=== PATIENT | male | born 1970 | race Hispanic/Latino ===

== ENCOUNTER 2018-01-11 09:33 | Emergency (ER) | payer OTHER ==
--- NOTE | 2018-01-11 10:12 | XRay Report ---
CHEST 2 VIEWS INDICATION: Shortness of breath. COMPARISON: None similar at this institution. FINDINGS: PA and lateral chest radiographs demonstrate normal cardiomediastinal silhouette. Clear lungs. Intact bones. CONCLUSION: No acute disease in the chest. Subtle hiatal hernia not excluded. Please correlate. Thank you for the opportunity to participate in this patient's care.
[2018-01-11 10:21] LABS: Basophils % (Auto) 0.3 % (0.0-1.8); Eosinophils % (Auto) 0.3 % (0.0-4.3); Hematocrit 46.4 % (35.5-45.6); Hemoglobin 15.8 gm/dl (11.8-15.2); Lymphocytes # (Auto) 2.1 K/mm3 (1.2-5.4); Lymphocytes % (Auto) 23.1 % (13.4-35.0); Mean Corpuscular HGB Conc 34 % (32-34); Mean Corpuscular Hemoglobin 35 pg (28-32); Mean Corpuscular Volume 102 fl (84-94); Monocytes # (Auto) 0.5 K/mm3 (0.0-0.8); Monocytes % (Auto) 5.7 % (0.0-7.3); Platelet Count 214 K/mm3 (140-440); Red Blood Count 4.54 M/mm3 (3.65-5.03); Red Cell Distribution Width 12.8 % (13.2-15.2)
[2018-01-11 10:34] LABS: BUN/Creatinine Ratio 16; Blood Urea Nitrogen 13 mg/dL (9-20); Calcium 9.2 mg/dL (8.4-10.2); Hemolysis Index 7
[2018-01-11] MEDS ORDERED: ATIVAN IM STA (10:52)
--- NOTE | 2018-01-11 10:59 | Emergency Department Report ---
ED General Adult HPI - General Chief complaint: Anxiety Stated complaint: CHEST PAIN Time Seen by Provider: 01/11/18 10:38 Source: patient, RN notes reviewed Mode of arrival: Ambulatory Limitations: No Limitations - History of Present Illness Initial comments: This is a 47-year-old male who was previously unknown to this provider. Memory care doctor is Dr. Collins with [facility] Past medical history includes anxiety, asthma, glaucoma, kidney stones The patient presents to the ER with a complaint of painless shortness of breath , sensation of heart racing, generalized weakness, bilateral upper extremity/ hand tingling and numbness, and a sensation of almost passing out. Contrary to what is documented in triage nurse note, the patient specifically denies chest pain. His symptoms started at 8:00 this morning, they are intermittent, did not radiate anywhere, patient reports no exacerbating or relieving factors. He reports that he felt like his asthma was acting up so he took an albuterol inhaler treatment, which did not change his symptoms. 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 There is no leg pain, there is no leg swelling, no recent trips, no recent hospital admissions, patient reports no personal or family history of DVT and pulmonary embolus risk factors. There is furthermore no family history of coronary artery disease that he is aware of. -: Sudden Consistency: intermittent Improves with: none Worsens with: none Associated Symptoms: malaise, shortness of breath, syncope, weakness. denies: confusion, cough, diaphoresis, fever/chills, headaches, loss of appetite, nausea /vomiting, rash, seizure - Related Data Allergies Allergy/AdvReac Type Severity Reaction Status Date / Time No Known Allergies Allergy Unverified 01/11/18 09:49 ED Review of Systems ROS: Stated complaint: CHEST PAIN Other details as noted in HPI Comment: All other systems reviewed and negative ED Past Medical Hx - Past Medical History Previous Medical History?: Yes Hx GERD: Yes Hx Kidney Stones: Yes Hx Psychiatric Treatment: Yes (anxiety) Hx Asthma: Yes Additional medical history: Glaucoma - Surgical History Past Surgical History?: Yes Additional Surgical History: tonsil, septoplasty - Social History Smoking Status: Never Smoker Substance Use Type: Alcohol, Prescribed ED Physical Exam - General Limitations: No Limitations General appearance: alert, anxious - Head Head exam: Present: atraumatic, normocephalic - Eye Eye exam: Present: normal appearance (left pupil is status post cataract surgery ), EOMI, other (visual acuity intact to finger counting, color perception, reading at a close distance). Absent: nystagmus - ENT ENT exam: Present: normal exam, normal orophraynx, mucous membranes moist, normal external ear exam - Neck Neck exam: Present: normal inspection, full ROM - Respiratory Respiratory exam: Present: normal lung sounds bilaterally. Absent: respiratory distress - Cardiovascular Cardiovascular Exam: Present: normal rhythm, tachycardia, normal heart sounds. Absent: bradycardia, irregular rhythm, systolic murmur, diastolic murmur, rubs, gallop - GI/Abdominal GI/Abdominal exam: Present: soft, normal bowel sounds. Absent: distended, tenderness, guarding, rebound, rigid, pulsatile mass - Rectal Rectal exam: Present: deferred - Extremities Exam Extremities exam: Present: normal inspection, full ROM, normal capillary refill , other (there is no palpable cord. There is a negative Homans sign.). Absent : calf tenderness - Back Exam Back exam: Present: normal inspection, full ROM. Absent: tenderness, CVA tenderness (R), paraspinal tenderness, vertebral tenderness - Neurological Exam Neurological exam: Present: alert, oriented X3, CN II-XII intact, normal gait ( no past pointing. Normal [id number]. Negative pronator drift. Normal gait, normal tandem gait, negative Romberg examination), other (Extraocular movements intact. Tongue midline. No facial droop. Facial sensation intact to light touch in the V1, V2, V3 distribution bilaterally. 5 and 5 strength in 4 extremities.. Sensation is intact to light touch in 4 extremities.). Absent: motor sensory deficit - Psychiatric Psychiatric exam: Present: anxious - Skin Skin exam: Present: warm, dry, intact, normal color. Absent: rash ED Course Vital Signs 01/11/18 01/11/18 09:49 10:59 Temperature 98 F Pulse Rate 110 H Respiratory 20 20 Rate Blood Pressure 155/101 O2 Sat by Pulse 100 96 Oximetry - Reevaluation(s) Reevaluation #1: 01/11/18 10:58 Differential diagnosis, including but not limited to: Pneumonia, acute coronary syndrome, structural cardiac disease, pulmonary embolus, pneumothorax, anxiety Assessment and plan: 47-year-old male with painless shortness of breath, palpitations, near syncope, nonspecific resolved neurologic symptoms, no pulmonary embolus or DVT risk factors, low risk by well's criteria, low risk by CESIA score, low risk by heart score, GCS of 15, with an NIH score of 0. At low risk for major adverse cardiac event. Plans to check d-dimer, repeat EKG, repeat troponin, and reassess. Appears to be somewhat anxious, will be medicated with IM Ativan. Reevaluation #2: 01/11/18 13:32 CT scan of the chest is negative for pulmonary embolus. Patient feels improved after Ativan. Still somewhat tachycardic, although this has improved. Patient has been observed in the ER for 5 hours without clinical decompensation. He is instructed to closely follow up with outpatient cardiology. ED Medical Decision Making - Lab Data Result diagrams: 01/11/18 10:05 01/11/18 10:05 Vital Signs 01/11/18 09:49 Temperature 98 F Pulse Rate 110 H Respiratory 20 Rate Blood Pressure 155/101 O2 Sat by Pulse 100 Oximetry Lab Results 01/11/18 01/11/18 Range/Units 10:05 10:05 WBC 8.9 (4.5-11.0) K/mm3 RBC 4.54 (3.65-5.03) M/mm3 Hgb 15.8 H (11.8-15.2) gm/dl Hct 46.4 H (35.5-45.6) % MCV 102 H (84-94) fl MCH 35 H (28-32) pg MCHC 34 (32-34) % RDW 12.8 L (13.2-15.2) % Plt Count 214 (140-440) K/mm3 Lymph % (Auto) 23.1 (13.4-35.0) % [place] % (Auto) 5.7 (0.0-7.3) % Eos % (Auto) 0.3 (0.0-4.3) % Baso % (Auto) 0.3 (0.0-1.8) % Lymph # 2.1 (1.2-5.4) K/mm3 [place] # 0.5 (0.0-0.8) K/mm3 Eos # 0.0 (0.0-0.4) K/mm3 Baso # 0.0 (0.0-0.1) K/mm3 Seg Neutrophils % 70.6 H (40.0-70.0) % Seg Neutrophils # 6.3 (1.8-7.7) K/mm3 Sodium 138 (137-145) mmol/L Potassium 3.6 (3.6-5.0) mmol/L Chloride 97.3 L (98-107) mmol/L Carbon Dioxide 23 (22-30) mmol/L Anion Gap 21 mmol/L BUN 13 (9-20) mg/dL Creatinine 0.8 (0.8-1.5) mg/dL Estimated GFR > 60 ml/min BUN/Creatinine Ratio 16 % Glucose 139 H (75-100) mg/dL Calcium 9.2 (8.4-10.2) mg/dL Troponin T < 0.010 (0.00-0.029) ng/mL - EKG Data -: EKG Interpreted by Vt EKG shows normal: sinus rhythm Rate: tachycardia - EKG Data When compared to previous EKG there are: previous EKG unavailable Interpretation: normal EKG 01/11/18 10:57 Sinus tachycardia, 110 bpm, normal intervals, normal axis, no prior for comparison 01/11/18 13:32 EKG #2 demonstrates sinus tachycardia, left axis deviation, left anterior fascicular block, not consistent with a STEMI - Radiology Data Radiology results: report reviewed, image reviewed X-ray of the chest is negative for acute disease Critical care attestation.: If time is entered above; I have spent that time in minutes in the direct care of this critically ill patient, excluding procedure time. ED Disposition Clinical Impression: Palpitations, Near syncope Disposition: DC-01 TO HOME OR SELFCARE Is pt being admited?: No Does the pt Need Aspirin: No Condition: Good Instructions: Near Syncope (ED) Additional Instructions: Continue current outpatient medications. Follow up with either of the listed cardiology groups within the next 3-5 days. Return to the ER right away with new pain, worsened pain, migration of pain, confusion, projectile vomiting, change in mental status, inability to tolerate liquid feeds, new, worsening or different symptoms. Referrals: [facility] [Provider Group] - 3-5 Days [facility] [Provider Group] - 3-5 Days
[2018-01-11] MEDS ORDERED: NACL 0.9% 1000 ML 1,000 ML IV ONE (11:31)
--- NOTE | 2018-01-11 13:19 | Cat Scan Report ---
CTA CHEST INDICATION: Near syncope, palpitations, dyspnea. COMPARISON: CXR from yesterday. FINDINGS: Chest CTA performed following intravenous administration of 100 cc of Omnipaque 350. Rotational MIP's also obtained. Unremarkable heart and great vessels without suspicious pulmonary arterial filling defects, to the extent assessed. No effusions or size significant adenopathy. Patent central airway. Normal thyroid. Bibasilar dependent atelectasis. Mild left lower lobe atelectasis or scarring. Approximately 5.5 cm hiatal hernia. No significant abnormality in the imaged upper abdomen. Unremarkable bones. CONCLUSION: No acute significant chest CT abnormality with few incidental findings, including a hiatal hernia, as described. Thank you for the opportunity to participate in this patient's care.
[2018-01-11 13:40] VITALS: BP 130/87
== END 2018-01-11 14:00 | disposition home or self-care (01) ==
LOC: ED 09:33
DX: R55 Syncope and collapse (principal); R00.2 Palpitations; R06.02 Shortness of breath; R53.1 Weakness; F41.9 Anxiety disorder, unspecified; K21.9 Gastro-esophageal reflux disease without esophagitis; H40.9 Unspecified glaucoma; J45.909 Unspecified asthma, uncomplicated; Z87.442 Personal history of urinary calculi
CPT/HCPCS: 36415; 71046; 71275; 80048; 84484; 85025; 85379; 93005; 93010; 96360; 96372; 99284; J2060; J7030; Q9967